=== PATIENT | female | born 1995 | race Caucasian/White ===

== ENCOUNTER → 2018-03-25 21:03 | Observation (INO) ==
[2018-03-25 20:18] LABS: Bilirubin,Urine Negative (Negative); Blood,Urine Large (Negative); Clarity,Urine Turbid (Clear); Color,Urine Yellow (Yellow); Glucose,Urine (UA) Normal (Normal); Ketones,Urine Negative (Negative); Leukocyte Esterase,Urine Moderate (Negative); Nitrite,Urine Positive (Negative); PH,Urine 6.5 pH Units (5.0-8.0); Protein,Urine 100 mg/dL (Neg-Trace); Specific Gravity,Urine 1.014 (1.010-1.025); Urobilinogen,Urine Normal (Normal)
[2018-03-25 20:21] LABS: Bacteria,Urine Many per hpf (None-Few); Hyaline Casts,Urine None Seen per lpf (None-Few); RBC,Urine TNTC per hpf (0-3); Squamous Epithelial Cell,Urine Many per lpf (None-Few); WBC,Urine TNTC per hpf (0-3)
[2018-03-25 20:30] LABS: Amphetamine Screen,Urine Negative ng/mL (Cutoff=1000); Barbiturate Screen,Urine Negative ng/mL (Cutoff=200); Benzodiazepines Screen,Urine Negative ng/mL (Cutoff=200); Cannabinoid Screen,Urine Negative ng/mL (Cutoff = 50); Cocaine Screen,Urine Negative ng/mL (Cutoff= 300); Opiate Screen,Urine Negative ng/mL (Cutoff=300); Phencyclidine Screen,Urine Negative ng/mL (Cutoff=25)
--- NOTE | 2018-03-25 21:02 | OB/GYN Progress Note ---
Date of Encounter: 03/25/18 Time of Encounter: 20:58 - Assessment and Plan (1) UTI (urinary tract infection) in in second trimester Current Visit: Yes Status: Acute Urinalysis indicative of UTI; Cx pending. Keflex ordered. Clotrimazole ordered for h/o yeast infection with ATBs. Discharge home with precautions. (2) 18 weeks gestation of Current Visit: Yes Status: Acute FHT 150bpm. Discharge home. Subjective - Subjective Principal diagnosis: pelvic pressure Interval history: 22 y/o presented at 18+2 weeks with pelvic pressure and pain with urination that began 2 days ago. Denies contractions, LOF, or VB. Reports good FM. Antepartum ROS: movement normal, no loss of fluid, no vaginal bleeding, no contractions Objective - Exam Auscultation: bilateral: normal Abdomen: Present: soft, gravid. Absent: tenderness - Labs Labs: Abnormal lab results Urine Clarity Turbid (Clear) A 03/25/18 20:01 Urine Protein 100 mg/dL (Neg-Trace) H 03/25/18 20:01 Urine Blood Large (Negative) H 03/25/18 20:01 Urine Nitrite Positive (Negative) A 03/25/18 20:01 Ur Leukocyte Esterase Moderate (Negative) H 03/25/18 20:01 Urine Microscopic RBC TNTC per hpf (0-3) H 03/25/18 20:01 Urine Microscopic WBC TNTC per hpf (0-3) H 03/25/18 20:01 Ur Squamous Epith Cells Many per lpf (None-Few) H 03/25/18 20:01 Urine Bacteria Many per hpf (None-Few) H 03/25/18 20:01 Ur Culture Indicated? NO. (NO) A 03/25/18 20:01
== END | disposition home or self-care (01) ==
LOC: 1NENULAB
PROVIDERS: ADMIT Registered Nurse; ATTEND Registered Nurse

== ENCOUNTER 2018-08-15 06:20 | Inpatient (IN) ==
[2018-08-15] MEDS ORDERED: Clindamycin 900 MG/50 ML 900 MG/50 ML IV.SOLN IVPB ONE (06:36)
[2018-08-15] MEDS ORDERED: Ringers Solution, Lactated 1,000 ML IVC ONE (06:36)
[2018-08-15 06:53] LABS: Basophils # 0.1 K/mcL (0.0-0.2); Basophils % 0.4 %; Eosinophils # 0.5 K/mcL (0.0-0.6); Eosinophils % 3.7 %; Hematocrit 31.8 % (35.3-44.9); Hemoglobin 11.1 g/dL (11.5-15.4); Immature Granulocytes % 0.7 % (0-4); Lymphocytes # 3.4 K/mcL (0.6-4.6); Lymphocytes % 26.8 %; Mean Corpuscular HGB Conc 34.9 g/dL (31.6-35.5); Mean Corpuscular Hemoglobin 31.2 pg (28.0-33.3); Mean Corpuscular Volume 89.3 fL (83.0-100.0); Mean Platelet Volume 9.9 fL (9.4-12.4); Monocytes % 7.6 %; Neutrophils # 7.6 K/mcL (1.6-8.9); Platelet Count 270 K/mcL (140-400); Red Blood Count 3.56 M/mcL (3.82-4.97); Segmented Neutrophils % 60.8 %
[2018-08-15 06:56] LABS: Amphetamine Screen,Urine Negative ng/mL (Cutoff=1000); Barbiturate Screen,Urine Negative ng/mL (Cutoff=200)
[2018-08-15 06:57] LABS: Benzodiazepines Screen,Urine Negative ng/mL (Cutoff=300); Cannabinoid Screen,Urine Negative ng/mL (Cutoff = 50); Cocaine Screen,Urine Negative ng/mL (Cutoff= 300); Opiate Screen,Urine Negative ng/mL (Cutoff=300); Phencyclidine Screen,Urine Negative ng/mL (Cutoff=25)
--- NOTE | 2018-08-15 07:16 | OB/GYN History & Physical ---
Date of Encounter: 08/15/18 Time of Encounter: 07:15 Assessment and Plan (1) Previous section complicating Current visit: Yes Status: Acute Patient will be prepped for a repeat low transverse section with bilateral partial salpingectomy (2) Family planning advice Current visit: Yes Status: Acute (3) 39 weeks gestation of Current visit: No Status: Acute (4) and not yet delivered in third trimester Current visit: No Status: Acute History of Present Illness HPI: Ms. Gilliland is a 23 year old female 4 para 2011 at 39-0/7 weeks who presented for repeat low transverse section with bilateral partial salpingectomy. Patient has a history of a previous section and wanted to have a repeat. Patient's course was complicated with a abnormal looking placenta appeared to have large placental Lasix was been followed by maternal- medicine and it remained stable. Patient is also wanting tubal ligation uterus and benefits of the tubal ligation was expanded to patient with failure rate of 5-8 per thousand with increased risk of ectopic if was to occur. Patient is GBS positive she is allergic to penicillin and was resistant to erythromycin so we will treat the patient with vancomycin. Patient is O+, rubella positive, Varicella positive Past Med Surg Social Fam HX - Past Medical History Source: patient, old records reviewed Medical history: no medical history Psychiatric history: no psych history - Past Surgical History Surgical History: - Social History Smoking Status: Current every day smoker Smokeless Tobacco Status: No Alcohol use: none Drug use: none Occupational status: unemployed Current living situation: Home - Independent Activity Level: Independent ambulation Recent Out of Country Travel Within the Last 8 Weeks: No Exposure or Possible Exposure to Illness During Travel: No - Family History Brother Adopted: No Family Member Ethnicity: Non- Living Status: Still Living Hx Family Cardiac Disorders: No Hx Family Respiratory Disorders: No Hx Family Cancer: No Hx Family GI Disorders: No Hx Family Genitourinary Disorders: No Hx Family Endocrine Disorder: No Hx Family Musculoskeletal Disorders: Yes (muscular dystrophy) Hx Family Neuromuscular Disorders: No Hx Family Neurologic Disorders: No Hx Family HEENT Disorders: No Hx Family Autoimmune Disorders: No Hx Family Reproductive Disorders: No Hx Family Psychosocial Disorders: No Hx Family Medical Disorders: No - Additional Family History Additional family history: Family history noncontributory Obstetrical History - Pregnancies : 4 Para: 2 : 0 Ab's: 1 Livin Medications and Allergies Ferrous Sulfate 325 mg PO DAILY 08/15/18 [History] Formula Tablet 1 tab PO DAILY 08/15/18 [History] Allergy/AdvReac Type Severity Reaction Status Date / Time Amoxicillin Allergy Rash Verified 12/12/17 23:09 Penicillins Allergy Rash Verified 12/12/17 23:09 Review of System OB All systems PM: reviewed and no additional remarkable complaints except as stated Exam - Vital Signs Vital signs: Initial Vital Signs Temp Pulse Resp BP 98.5 F 100 16 110/71 08/15/18 06:24 08/15/18 06:24 08/15/18 06:24 08/15/18 06:24 - Constitutional Constitutional: well developed, well nourished, no acute distress, average body habitus - HEENT HEENT: EOMI, PERRL, Mucus Membranes Moist - Neck Neck exam: full ROM - Lungs Respiratory exam: CTAB - Cardiovascular Cardiovascular exam: RRR - Abdomen Abdomen: Present: bowel sounds normal, gravid ( heart tones 140s reactive no contraction seen) - Vagina Vagina: Present: normal moisture - Cervix Dilation: 0 Effacement: 50 Station: -3 - Uterus Uterus exam: Present: enlarged Results Result Diagrams: 08/15/18 06:42 Abnormal lab results WBC 12.6 K/mcL (4.3-11.1) H 08/15/18 06:42 RBC 3.56 M/mcL (3.82-4.97) L 08/15/18 06:42 Hgb 11.1 g/dL (11.5-15.4) L 08/15/18 06:42 Hct 31.8 % (35.3-44.9) L 08/15/18 06:42 All other labs normal.
[2018-08-15] MEDS ORDERED: *HR* Morphine Sulfate/PF 10 MG/10 ML AMPUL ONE (07:28)
[2018-08-15] MEDS ORDERED: *HR* FentaNYL (PF) 100 MCG/2 ML VIAL ONE (07:29)
[2018-08-15] MEDS ORDERED: Bupivacaine/PF 0.75% in Dex 2 ML AMPUL INFILT ONE (07:29)
[2018-08-15] MEDS ORDERED: Lidocaine -MPF 1% 5 ML AMPUL ONE (07:29)
[2018-08-15] MEDS ORDERED: *HR* Phenylephrine 10 MG/ML VIAL ONE (07:31)
[2018-08-15] MEDS ORDERED: Ringers Solution, Lactated 1,000 ML ONE (07:51)
[2018-08-15] MEDS ORDERED: Oxytocin 20 units/ LR 1000 mL 40 UNIT/2,000 ML BAG IVC ONE (07:51)
[2018-08-15] MEDS ORDERED: Famotidine 20 MG/2 ML VIAL IVP ONE (07:54)
[2018-08-15] MEDS ORDERED: Metoclopramide 10 MG/2 ML VIAL IVP ONE (07:55)
--- NOTE | 2018-08-15 08:22 | Anesthesia Evaluation PreOp ---
Date of Encounter: 08/15/18 Time of Encounter: 07:20 - Past History Planned Operation: csection Cardiac History: Denies any Significant Hx Pulmonary History: Smoker (1/2 ppd) CAD INTERN History: Denies Any Significant HX Other Medical History: Denies Any Significant HX Anesthesia History: No Prior Anesthetic Complications, Past Anesthesia : Yes (39 weeks, ) Alcohol Use: none Drug use: none Medications and Allergies Ferrous Sulfate 325 mg PO DAILY 08/15/18 [History] Formula Tablet 1 tab PO DAILY 08/15/18 [History] Allergy/AdvReac Type Severity Reaction Status Date / Time Amoxicillin Allergy Rash Verified 12/12/17 23:09 Penicillins Allergy Rash Verified 12/12/17 23:09 - Meds/Allergy Pre-op Review Medications Reviewed: Yes Allergies Reviewed: Yes Beta Blockers on Current Med List: No Anesthesia Results - Labs 08/15/18 06:42 Anesthesia Exam O2 Sat Height 1.63 m Weight 66.3 kg Vital Signs Temp Pulse Resp BP 98.5 F 100 16 110/71 08/15/18 06:24 08/15/18 06:24 08/15/18 06:24 08/15/18 06:24 Height: 64 Weight: 66 NPO (# of Hours): greater than 8 hours - HEENT Pupil (Motor): Pupils equal Mallampati: II Teeth: Normal Oral Opening: Greater than 3 - CAD INTERN LOC: Oriented CAD INTERN Motor: Normal RUE, Normal LUE, Normal RLE, Normal LLE, Normal Face CAD INTERN Sensory: Normal: RUE, LUE, RLE, LLE, Face - Cardiac Rhythm: Regular Murmur: None JVD: No Carotid Bruit: No - Pulmonary Breath Sounds: bilateral Clear Respiratory Effort: Symmetrical Anesthesia Assess/Plan ASA Score: 2 Anesthetic Plan: Spinal Monitoring Plan: Standard Monitors Recovery Plan: PACU
[2018-08-15] MEDS ORDERED: Acetaminophen IV 1,000 MG/100 ML INFUS..BTL IVPB ONE (08:38)
[2018-08-15] MEDS ORDERED: *HR* Nalbuphine 10 MG/ML AMPUL IV PRN (08:38)
[2018-08-15] MEDS ORDERED: Albuterol 2.5 MG/3 ML NEBULIZER IH ONE (08:38)
[2018-08-15] MEDS ORDERED: *HR* OxyCODONE Immed Rel 5 MG TABLET PO PRN (08:38)
[2018-08-15] MEDS ORDERED: Ketorolac 30 MG/ML VIAL IVP ONE (08:38)
[2018-08-15] MEDS ORDERED: *HR* HYDROmorphone (PF) 1 MG/ML SYRINGE IVP PRN (08:38)
[2018-08-15] MEDS ORDERED: Ondansetron 4 MG/2 ML VIAL IVP ONE (08:38)
[2018-08-15] MEDS ORDERED: *HR* Meperidine 50 MG/ML SYRINGE IVP PRN (08:38)
[2018-08-15] MEDS ORDERED: *HR* Promethazine 25 MG/ML VIAL IVP PRN (08:38)
--- NOTE | 2018-08-15 09:13 | OB/GYN Procedure Note ---
Section - Date of procedure: 08/15/18 Preop diagnosis: other (Intrauterine at 39-0/7 weeks, previous section 1, desires sterilization) Post-op diagnosis: same Procedure: repeat low transverse, bilateral tubal ligation Surgeon: Fernando Roberto Was there an medical assistant dermatology present: Yes Fat Purification Worker: Andie Marcial ([id number]) Moss Picker: Pravin Zamora Anesthesia Type: Spinal section complications: none Disposition: L&D Recovery Room Specimens: Placenta, Right tube segment, Left tube segment - Infant (s) Infant A Delivery Date: 08/15/18 Infant Delivery Time: 08:16 Presentation: vertex Position: DEBORA Route of delivery: other ( section) Gender: Male Viability: Viable Pounds: 6 Ounces: 11 Gram Weight: 3.035 kg at 1 minute: 8 at 5 minutes: 9 Shoulder Dystocia: not encountered Specimens collected: cord blood Placenta: spontaneous Cord: nuchal cord, 3 umbilical vessels, nuchal reduced - Narrative Narrative: Patient is a 23-year-old 3 para 2 at 39 and 0 surgery she presented for repeat low transverse section. Patient had a previous section for breech presentation did not want her trial of labor wanted a repeat patient also wanted tubal ligation the risks and benefits of the tubal were extracted patient with failure rate of 5-8 per thousand with increased risk of ectopic if was to occur. Procedure: Patient was taken to the operating room where spinal anesthesia was found adequate. She was normal dorsal supine position with leftward tilt prepped and draped in usual fashion. Pfannenstiel incision was then made with a scalpel carried down through the underlying tissue to the fascia was identified. The fascia was nicked in midline extended laterally with the Rudolph scissors. The superior and inferior edges of the fascia grasped tented up and dissected off the rectus muscle. Rectus muscles were in the midline parietal peritoneum was identified tented up and entered sharply. This was extended superiorly and inferiorly with Metzenbaum scissors. The bladder blade was inserted the vesicouterine peritoneum was identified tented up and entered sharply. This was extended laterally the bladder flap was created digitally. The lower uterine segment was then incised with a scalpel and extended laterally with digital manipulation. Membranes were ruptured clear fluid identified the 's head was then brought up through the incision there was a nuchal cord 1 loose and reduced the was then fully delivered cord was cut and cut infant was handed off to waiting pediatric team. Cord blood was collected and placenta was then delivered spontaneously 3 vessel cord. Uterus was exteriorized cleared of all clots and debris. The lower uterine segment was then closed using 0 Vicryl in a running locking stitch by a 2 layer closure. Good hemostasis was noted attention was then turned to the fallopian tubes. Each tube was grasped at the ampulla region a 2 cm portion of each tube was then suture ligated with oh plain 2 and the knuckle was excised. Good hemostasis was noted both ovaries were normal. Uterus was then returned to the abdomen and gutters were cleaned of all clots and debris then copiously irrigated. No active bleeding was noted the fascia was then closed using a #1 stratafix In a running stitch and the skin was closed using a 4-0 Vicryl in a subcuticular manner. A PRINEO dressing was then applied and the patient was taken to the recovery room in stable condition. All needles lap sponge counts were correct 3 she did tolerate procedure well.
--- NOTE | 2018-08-15 09:33 | Anesthesia Evaluation Post Op ---
Date of Encounter: 08/15/18 Time of Encounter: 09:32 - Vital Signs Vital Signs: Vital Signs/O2 Sat, Most Current Temp Pulse Resp BP 98.5 F 100 16 110/71 08/15/18 06:24 08/15/18 06:24 08/15/18 06:24 08/15/18 06:24 pacu: 117/66 73 rr 18 spo2 99 - Lungs Lungs: Clear Ascult./Percussion - Airway Airway: Non-obstructed - Cardiovascular Regular Rate - Mental Status Mental Status: Alert & Oriented, Answers Appropriately - Pain Pain Scale: 0 - Nausea Vomiting Nausea Vomiting: Not Present - Hydration Hydration: NPO, Amador catheter - Discharge PostOp Status: Transfer Patient to floor
[2018-08-15] MEDS ORDERED: Oxytocin 20 units/ LR 1000 mL 20 UNIT/1,000 ML BAG IVC SCH (11:32)
[2018-08-15] MEDS ORDERED: Metoclopramide 10 MG/2 ML VIAL IVP PRN (11:32)
[2018-08-15] MEDS ORDERED: Ringers Solution, Lactated 1,000 ML IVC SCH (11:32)
[2018-08-15] MEDS ORDERED: Sennosides 8.6 MG TABLET PO PRN (11:32)
[2018-08-15] MEDS ORDERED: Simethicone 80 MG TAB.CHEW PO PRN (11:32)
[2018-08-15] MEDS: Ondansetron 4 MG/2 ML VIAL IVP PRN ×2 (12:00→17:51)
[2018-08-15] MEDS: *HR* OxyCODONE/APAP 5/325 TABLET PO PRN ×2 (13:29→22:59)
[2018-08-15] MEDS: Ibuprofen 600 MG TABLET PO PRN ×2 (16:23→19:56)
[2018-08-16] MEDS: Ibuprofen 600 MG TABLET PO PRN ×3 (03:01→20:29)
[2018-08-16] MEDS: *HR* OxyCODONE/APAP 10/325 TABLET PO PRN ×2 (08:06→16:18)
[2018-08-16] MEDS: Prenatal Vit/FA 1 EACH TABLET PO SCH (08:06)
[2018-08-16] MEDS ORDERED: NON-FORMULARY MEDICATION 1 EACH EACH (Prenatal Formula Tablet 1 TAB) PO SCH (09:00)
--- NOTE | 2018-08-16 09:36 | OB/GYN Progress Note ---
Date of Encounter: 08/16/18 Time of Encounter: 09:34 - Assessment and Plan (1) S/P section Current Visit: No Status: Acute Patient meeting day one milestones. Pain well-controlled with prescribed medications. Voiding without difficulty, tolerating regular diet. No bowel movement yet. Anticipate discharge tomorrow Subjective - Subjective Principal diagnosis: Status post section Interval history: Date of procedure: 08/15/18 Preop diagnosis: other (Intrauterine at 39-0/7 weeks, previous section 1, desires sterilization) Post-op diagnosis: same Procedure: repeat low transverse, bilateral tubal ligation Surgeon: Fernando Roberto Was there an physical laboratory assistant present: Yes Cop Examiner: Andie Marcial ([id number]) Supplier Engineer: Pravin Zamora Anesthesia Type: Spinal section complications: none Disposition: L&D Recovery Room Specimens: Placenta, Right tube segment, Left tube segment - (s) A Delivery Date: 08/15/18 Infant Delivery Time: 08:16 Presentation: vertex Position: DEBORA Route of delivery: other ( section) Gender: Male Viability: Viable Pounds: 6 Ounces: 11 Gram Weight: 3.035 kg at 1 minute: 8 at 5 minutes: 9 Shoulder Dystocia: not encountered Specimens collected: cord blood Placenta: spontaneous Cord: nuchal cord, 3 umbilical vessels, nuchal reduced - Narrative Narrative: Patient is a 23-year-old 3 para 2 at 39 and 0 surgery she presented for repeat low transverse section. Patient had a previous section for breech presentation did not want her trial of labor wanted a repeat patient also wanted tubal ligation the risks and benefits of the tubal were extracted patient with failure rate of 5-8 per thousand with increased risk of ectopic if was to occur. Procedure: Patient was taken to the operating room where spinal anesthesia was found adequate. She was normal dorsal supine position with leftward tilt prepped and draped in usual fashion. Pfannenstiel incision was then made with a scalpel carried down through the underlying tissue to the fascia was identified. The fascia was nicked in midline extended laterally with the Rudolph scissors. The superior and inferior edges of the fascia grasped tented up and dissected off the rectus muscle. Rectus muscles were in the midline parietal peritoneum was identified tented up and entered sharply. This was extended superiorly and inferiorly with Metzenbaum scissors. The bladder blade was inserted the vesicouterine peritoneum was identified tented up and entered sharply. This was extended laterally the bladder flap was created digitally. The lower uterine segment was then incised with a scalpel and extended laterally with digital manipulation. Membranes were ruptured clear fluid identified the 's head was then brought up through the incision there was a nuchal cord 1 loose and reduced the infant was then fully delivered cord was cut and cut infant was handed off to waiting pediatric team. Cord blood was collected and placenta was then delivered spontaneously 3 vessel cord. Uterus was exteriorized cleared of all clots and debris. The lower uterine segment was then closed using 0 Vicryl in a running locking stitch by a 2 layer closure. Good hemostasis was noted attention was then turned to the fallopian tubes. Each tube was grasped at the ampulla region a 2 cm portion of each tube was then suture ligated with oh plain 2 and the knuckle was excised. Good hemostasis was noted both ovaries were normal. Uterus was then returned to the abdomen and gutters were cleaned of all clots and debris then copiously irrigated. No active bleeding was noted the fascia was then closed using a #1 stratafix In a r unning stitch and the skin was closed using a 4-0 Vicryl in a subcuticular manner. A PRINEO dressing was then applied and the patient was taken to the recovery room in stable condition. All needles lap sponge counts were correct 3 she did tolerate procedure well. Patient reports: appetite normal, voiding normally, pain well controlled, ambulating normally Vail: doing well, bottle feeding Objective - Vital Signs Latest vital signs: Vital Signs Temp Pulse Resp BP Pulse Ox 08/16/18 08:28 16 08/16/18 07:40 97.9 F 68 12 100/59 98 08/16/18 03:01 98.0 F 52 14 111/60 98 08/15/18 23:02 97.9 F 69 14 108/69 97 08/15/18 19:50 97.8 F 64 14 109/66 98 08/15/18 16:15 97.6 F 71 16 98/56 97 08/15/18 14:15 97.3 F L 68 16 105/53 99 08/15/18 13:15 97.4 F L 71 15 101/51 98 08/15/18 12:15 97.5 F L 62 16 90/53 95 08/15/18 11:45 97.3 F L 71 16 97/60 97 08/15/18 11:15 65 16 105/66 99 Intake and Output 08/15/18 08/16/18 08/16/18 23:59 07:59 15:59 Intake Total 200 / 200 500 / 500 Output Total 600 / 600 400 / 400 500 / 500 Balance -400 / -400 100 / 100 -500 / -500 Intake: Oral 200 / 200 500 / 500 Output: Urine 400 / 400 500 / 500 Catheter 600 / 600 Urethral (Amador) 350 / 350 Other: # Voids 1 Weight 64.501 kg Patient Weight 08/16/18 23:59 Weight 64.501 kg - Exam Lungs: bilateral: normal Chest: Normal S1, Normal S2 Extremities: Present: normal Abdomen: Present: normal appearance, soft Incision: Present: normal, dressed (dermabond) Uterus: Present: normal, firm Fundal Height: 1 (u/1)
[2018-08-16 09:37] LABS: Basophils % 0.3 %; Eosinophils # 0.4 K/mcL (0.0-0.6); Eosinophils % 2.9 %; Hematocrit 31.7 % (35.3-44.9); Hemoglobin 10.5 g/dL (11.5-15.4); Immature Granulocytes % 0.7 % (0-4); Lymphocytes # 3.1 K/mcL (0.6-4.6); Lymphocytes % 25.2 %; Mean Corpuscular HGB Conc 33.1 g/dL (31.6-35.5); Mean Corpuscular Hemoglobin 30.1 pg (28.0-33.3); Mean Corpuscular Volume 90.8 fL (83.0-100.0); Mean Platelet Volume 10.2 fL (9.4-12.4); Monocytes # 0.9 K/mcL (0.0-1.3); Monocytes % 7.1 %; Neutrophils # 7.7 K/mcL (1.6-8.9); Platelet Count 274 K/mcL (140-400); Red Blood Count 3.49 M/mcL (3.82-4.97); Red Cell Distribution Width 12.8 % (11.5-14.5); Segmented Neutrophils % 63.8 %
[2018-08-17] MEDS: Ibuprofen 600 MG TABLET PO PRN ×2 (04:24→13:21)
[2018-08-17] MEDS: *HR* OxyCODONE/APAP 5/325 TABLET PO PRN ×3 (04:24→13:21)
[2018-08-17] MEDS: Prenatal Vit/FA 1 EACH TABLET PO SCH (08:02)
[2018-08-17 08:24] VITALS: BP 108/76
--- NOTE | 2018-08-17 12:31 | Discharge Summary ---
Date of Encounter: 08/17/18 Time of Encounter: 12:28 - Discharge Diagnosis (1) S/P section Priority: Primary Status: Acute Comments: Stable POD #2, meeting all PP milestones, pain well managed on PO pain medication, bottle feeding, desires discharge. - Discharge Medications Prescriptions: Ibuprofen [Motrin] 600 mg PO Q6HR PRN #60 tablet PRN Reason: Cramping OxyCODONE/APAP 10/325 [Percocet 10/325 MG] 1 each PO Q6HR PRN 5 Days #20 tablet PRN Reason: Severe Pain Docusate [Colace] 100 mg PO BID #20 capsule Ferrous Sulfate 325 mg PO DAILY #30 tablet Home Medications: Ferrous Sulfate 325 mg PO DAILY 08/15/18 [History] Formula Tablet 1 tab PO DAILY 08/15/18 [History] Docusate [Colace] 100 mg PO BID #20 capsule 08/17/18 [Rx] Ferrous Sulfate 325 mg PO DAILY #30 tablet 08/17/18 [Rx] Ibuprofen [Motrin] 600 mg PO Q6HR PRN #60 tablet 08/17/18 [Rx] OxyCODONE/APAP 10/325 [Percocet 10/325 MG] 1 each PO Q6HR PRN 5 Days #20 tablet 08/17/18 [Rx] Simethicone [Gas-X] 80 mg PO TID PRN tab.chew 08/17/18 [Rx] Allergies/Adverse Reactions: Allergy/AdvReac Type Severity Reaction Status Date / Time Amoxicillin Allergy Rash Verified 12/12/17 23:09 Penicillins Allergy Rash Verified 12/12/17 23:09 Data Procedures and tests throughout hospitalization: Laboratory Tests 08/15/18 08/15/18 08/15/18 06:42 06:42 07:00 WBC 12.6 H RBC 3.56 L Hgb 11.1 L Hct 31.8 L MCV 89.3 MCH 31.2 MCHC 34.9 RDW 13.0 Plt Count 270 MPV 9.9 Immature Gran % 0.7 Seg Neutrophils % 60.8 Lymphocytes % 26.8 Monocytes % 7.6 Eosinophils % 3.7 Basophils % 0.4 Neutrophils # 7.6 Lymphocytes # 3.4 Monocytes # 1.0 Eosinophils # 0.5 Basophils # 0.1 Urine Opiates Screen Negative Ur Barbiturates Screen Negative Ur Phencyclidine Scrn Negative Ur Amphetamines Screen Negative U Benzodiazepines Scrn Negative Urine Cocaine Screen Negative U Marijuana (THC) Screen Negative Ur Drug Screen Interp See Below Hep Bs Antigen Nonreactive 08/16/18 08:35 WBC 12.1 H RBC 3.49 L Hgb 10.5 L Hct 31.7 L MCV 90.8 MCH 30.1 MCHC 33.1 RDW 12.8 Plt Count 274 MPV 10.2 Immature Gran % 0.7 Seg Neutrophils % 63.8 Lymphocytes % 25.2 Monocytes % 7.1 Eosinophils % 2.9 Basophils % 0.3 Neutrophils # 7.7 Lymphocytes # 3.1 Monocytes # 0.9 Eosinophils # 0.4 Basophils # 0.0 Urine Opiates Screen Ur Barbiturates Screen Ur Phencyclidine Scrn Ur Amphetamines Screen U Benzodiazepines Scrn Urine Cocaine Screen U Marijuana (THC) Screen Ur Drug Screen Interp Hep Bs Antigen Date of admission: 08/15/18 06:20 Primary care physician: Leon Jones MD Discharging clinician: Nola Guevara Anticipated date of discharge: 08/17/18 - Patient Status Disposition: Home, Self-Care Condition: Good Overall status at discharge: patient is progressing back to baseline - Discharge Instructions Follow Up With: Leon Jones MD [Primary Care Provider] - Fernando Roberto DO [Partnered Physician] - - Diet and Activity Activity: resume usual activities as tolerated Diet: regular diet Hospital Course Reason for admission: section Delivery: section Episiotomy: none Laceration: none Other procedures: none complications: none Discharge diagnosis: IUP at term delivered baby: male Hospital course: Section - Date of procedure: 08/15/18 Preop diagnosis: other (Intrauterine at 39-0/7 weeks, previous section 1, desires sterilization) Post-op diagnosis: same Procedure: repeat low transverse, bilateral tubal ligation Surgeon: Fernando Roberto Was there an assistant head cashier present: Yes Insurance Claim Auditor: Andie Marcial ([id number]) Scrap Metal Processing Worker: Pravin Zamora Anesthesia Type: Spinal section complications: none Disposition: L&D Recovery Room Specimens: Placenta, Right tube segment, Left tube segment - (s) A Delivery Date: 08/15/18 Infant Delivery Time: 08:16 Presentation: vertex Position: DEBORA Route of delivery: other ( section) Gender: Male Viability: Viable Pounds: 6 Ounces: 11 Gram Weight: 3.035 kg at 1 minute: 8 at 5 minutes: 9 Shoulder Dystocia: not encountered Specimens collected: cord blood Placenta: spontaneous Cord: nuchal cord, 3 umbilical vessels, nuchal reduced Stable in PP, appropriate for discharge, OARRS reviewed Time Attestation: Total time spent providing and/or coordinating discharge services: Time Spent: Less than 30 minutes - VTE Documentation of Mechanical Device: Intermittent pneumatic compression device Exam - Constitutional Vitals: Temp Pulse Resp BP Pulse Ox 98.1 F 69 16 108/76 97 08/17/18 07:40 08/17/18 07:40 08/17/18 07:40 08/17/18 07:40 08/17/18 04:10 General appearance IM: A&O X 3 - Respiratory Respiratory exam: Present: CTAB - Cardiovascular Cardiovascular exam IM: Present: RRR - GI/Abdominal GI/Abdominal exam IM: soft Incision: normal, dressed (dermabond intact ) - Uterine Tone: Firm Uterus Position: At Umbilicus - Extremities Exam Extremities exam IM: Present: pedal edema - Neurological Exam Neurological exam: normal gait, oriented X3 - Psychiatric Additional comments: Reports good mood
== END 2018-08-17 14:39 | disposition home or self-care (01) | DRG 540 ==
LOC: 1NENULAB 06:20 → EDSTATUS 07:45 → 1NENUOBS 11:27
PROVIDERS: ADMIT Obstetrics & Gynecology; ATTEND Obstetrics & Gynecology